=== PATIENT | male | born 1995 | race Caucasian/White ===

== ENCOUNTER 2021-09-19 08:00 | Emergency (ER) | payer OTHER, SELFPAY ==
[2021-09-19] MEDS ORDERED: CYCLOBENZAPRINE 10 MG TAB ONE (08:51)
[2021-09-19] MEDS ORDERED: IBUPROFEN 200 MG TAB PO ONE (08:51)
--- NOTE | 2021-09-19 09:05 | EDPHYS ---
Physician Documentation [facility] Name: Florin March Age: 26 yrs Sex: Male : 1995 Arrival Date: 09/19/2021 Time: 08:02 Bed Waiting Private MD: ED Physician Ferny Thompson HPI: 09/19 08:46 This 26 yrs old Male presents to ER via Ambulatory with complaints of Low Back Pain. ms3 08:46 The patient presents with pain that is acute, with no known mechanism of injury, and ms3 spasm. The symptoms are located in the low back. The pain does not radiate. The problem was sustained when lifting heavy object. Onset: The symptoms/episode began/occurred acutely, 2 week(s) ago. Modifying factors: The patient symptoms are alleviated by nothing, the patient symptoms are aggravated by bending. Associated signs and symptoms: The patient has no apparent associated signs or symptoms. Severity of symptoms: At their worst the symptoms were moderate, in the emergency department the symptoms are unchanged. Historical: - Allergies: 08:26 Zofran; ss 08:46 Morphine; ss - Home Meds: 08:46 None [Active]; ss - PMHx: 08:46 None; ss - PSHx: 08:46 None; ss - Immunization history:: Client reports having NOT received the Covid vaccine. - Social history:: Smoking status: Patient denies any tobacco usage or history of. ROS: 08:46 Constitutional: Negative for fever, and chills. ENT: Negative for injury, pain, and ms3 discharge, Neck: Negative for injury, pain, and swelling, Cardiovascular: Negative for chest pain, and palpitations. Respiratory: Negative for shortness of breath, cough, wheezing, and pleuritic chest pain, Abdomen/GI: Negative for abdominal pain, nausea, vomiting, diarrhea, and constipation, MS/Extremity: Negative for injury and deformity, Skin: Negative for injury, rash, and discoloration, Allergy/Immunology: Negative for hives, rash, and allergies. 08:46 Back: Positive for pain at rest, pain with movement. 08:46 All other systems are negative. Exam: 08:46 Constitutional: This is a well developed, well nourished patient who is awake, alert, ms3 and in no acute distress. Head/Face: Normocephalic, atraumatic. ENT: Nares patent. No nasal discharge, no septal abnormalities noted. Tympanic membranes are normal and external auditory canals are clear. Oropharynx with no redness, swelling, or masses, exudates, or evidence of obstruction, uvula midline. Mucous membranes moist. Neck: Trachea midline, no cervical lymphadenopathy. Supple, full range of motion without nuchal rigidity, or vertebral point tenderness. No Meningismus. Chest/axilla: Normal chest wall appearance and motion. Nontender with no deformity. Cardiovascular: Regular rate and rhythm with a normal S1 and S2. No gallops, murmurs, or rubs. Normal PMI, no JVD. No pulse deficits. Respiratory: Lungs have equal breath sounds bilaterally, clear to auscultation and percussion. No rales, rhonchi or wheezes noted. No increased work of breathing, no retractions or nasal flaring. Abdomen/GI: Soft, non-tender, with normal bowel sounds. No distension or tympany. No guarding or rebound. No evidence of tenderness throughout. Skin: Warm, dry with normal turgor. Normal color with no rashes, no lesions, and no evidence of cellulitis. Psych: Awake, alert, with orientation to person, place and time. Behavior, mood, and affect are within normal limits. 08:46 Back: pain, that is mild, ROM is normal, normal spinal alignment noted, CVA tenderness, is absent, muscle spasm, is appreciated in the right low back. 08:46 Musculoskeletal/extremity: Extremities: all appear grossly normal, with no appreciated pain with palpation, ROM: no acute changes, Circulation is intact in all extremities. Vital Signs: 08:25 BP 122 / 89; Pulse 71; Resp 16; Temp 98.4(TE); Pulse Ox 100% on R/A; Weight 58.97 kg; ss Height 5 ft. 6 in. (167.64 cm); Pain 5/10; 08:25 Body Mass Index 20.98 (58.97 kg, 167.64 cm) ss MDM: 08:05 Patient medically screened. ms3 08:46 Differential diagnosis: strain, Herniated disc Muscle spasm. ms3 09:05 Data reviewed: vital signs, nurses notes, and as a result, I will discharge patient. ms3 Counseling: I had a detailed discussion with the patient and/or guardian regarding: the historical points, exam findings, and any diagnostic results supporting the discharge/admit diagnosis, the need for outpatient follow up, to return to the emergency department if symptoms worsen or persist or if there are any questions or concerns that arise at home. ED course: Discussed PE findings with patient. Patient to follow up with PMD in 2-3 days. Patient understands/ agrees with plan. All questions answered. Return precautions discussed to include worsening symptoms, or any other concerns. On re-evaluation patient is A/O x4, nad, non-toxic, ambulatory in ED, speaking full sentences.. Administered Medications: 08:47 Drug: Ibuprofen 600 mg Route: PO; ss 09:26 Follow up: Response: No adverse reaction; Medication administered at discharge. ss 08:47 Drug: Flexeril (cyclobenzaprine) 10 mg Route: PO; ss 09:26 Follow up: Response: No adverse reaction ss Disposition Summary: 09/19/21 09:05 Discharge Ordered Location: Home ms3 Condition: Stable ms3 Diagnosis - Low back pain ms3 - Muscle spasm of back ms3 Followup: ms3 - With: Jaswant Sosa DO - When: 2 - 3 days - Reason: Re-evaluation by your physician Discharge Instructions: - Discharge Summary Sheet ms3 - Acute Back Pain, Adult ms3 Forms: - Medication Reconciliation Form ms3 - Thank You Letter ms3 - Antibiotic Education ms3 - Prescription Opioid Use ms3 Prescriptions: - Ibuprofen 600 mg Oral Tablet - take 1 tablet by ORAL route every 6 hours As needed take with food; 30 tablet; ms3 Refills: 0, Product Selection Permitted - Cyclobenzaprine 5 mg Oral Tablet - take 1 tablet by ORAL route 3 times per day As needed; 15 tablet; Refills: 0, ms3 Product Selection Permitted Signatures: Shayla Freed, RN RN Ferny Almeida DO DO ms3
--- NOTE | 2021-09-19 09:05 | ER ---
Nurse's Notes [facility] Name: Florin March Age: 26 yrs Sex: Male : 1995 Arrival Date: 09/19/2021 Time: 08:02 Bed Waiting [facility] MD: Diagnosis: Low back pain;Muscle spasm of back Presentation: 09/19 08:25 Chief complaint: Patient states: low back pain that began 2 weeks ago. Worse when ss bending down or lifting heavy objects. Coronavirus screen: Client denies travel out of the [place] in the last 14 days. Ebola Screen: Patient denies exposure to infectious person. Patient denies travel to an Ebola-affected area in the 21 days before illness onset. Initial Sepsis Screen: Does the patient meet any 2 criteria? No. Patient's initial sepsis screen is negative. Does the patient have a suspected source of infection? No. Patient's initial sepsis screen is negative. Risk Assessment: Do you want to hurt yourself or someone else? Patient reports no desire to harm self or others. Onset of symptoms was August 2021. 08:25 Method Of Arrival: Ambulatory ss 08:25 Acuity: DANIELLE 4 ss Historical: - Allergies: 08:26 Zofran; ss 08:46 Morphine; ss - Home Meds: 08:46 None [Active]; ss - PMHx: 08:46 None; ss - PSHx: 08:46 None; ss - Immunization history:: Client reports having NOT received the Covid vaccine. - Social history:: Smoking status: Patient denies any tobacco usage or history of. Screenin:25 Abuse screen: Denies threats or abuse. Denies injuries from another. Nutritional ss screening: No deficits noted. Tuberculosis screening: Never had TB. Fall Risk None identified. Assessment: 09:25 General: Appears in no apparent distress. comfortable, Behavior is calm, cooperative, ss Denies fever, feeling ill, fatigue, chills. Pain: Complains of pain in right low back Pain currently is 5 out of 10 on a pain scale. Pain began 2 weeks ago Is continuous. Pain: Aggravated by increased activity, repositioning. Neuro: Metcalf Agitation-Sedation Scale (RASS): 0 - Alert and Calm Level of Consciousness is awake, alert, obeys commands, Oriented to person, place, time, situation. Cardiovascular: Capillary refill < 3 seconds is brisk in bilateral fingers. Respiratory: Airway is patent Respiratory effort is even, unlabored, Respiratory pattern is regular, symmetrical. GI: No signs and/or symptoms were reported involving the gastrointestinal system. EENT: Nares are clear. Derm: Skin is intact, is healthy with good turgor, Skin is dry, Skin is pink, warm \T\ dry. normal. Musculoskeletal: Range of motion: intact in all extremities, Swelling absent. Vital Signs: 08:25 BP 122 / 89; Pulse 71; Resp 16; Temp 98.4(TE); Pulse Ox 100% on R/A; Weight 58.97 kg; ss Height 5 ft. 6 in. (167.64 cm); Pain 5/10; 08:25 Body Mass Index 20.98 (58.97 kg, 167.64 cm) ss ED Course: 08:02 Patient arrived in ED. as 08:06 Ferny Thompson DO is Attending Physician. ms3 08:26 Triage completed. ss 08:26 Arm band placed on right wrist. ss 09:04 Jaswant Sosa DO is Referral Physician. ms3 09:25 Shayla Freed, BARB is Primary Nurse. ss 09:25 Patient has correct armband on for positive identification. Bed in low position. ss 09:25 No provider procedures requiring assistance completed. Patient did not have IV access ss during this emergency room visit. Administered Medications: 08:47 Drug: Ibuprofen 600 mg Route: PO; ss 09:26 Follow up: Response: No adverse reaction; Medication administered at discharge. ss 08:47 Drug: Flexeril (cyclobenzaprine) 10 mg Route: PO; ss 09:26 Follow up: Response: No adverse reaction ss Medication: 09:25 VIS not applicable for this client. ss Outcome: 09:05 Discharge ordered by . ms3 09:25 Discharged to home ambulatory, with significant other. ss 09:25 Condition: good 09:25 Discharge instructions given to patient, significant other, Instructed on discharge instructions, follow up and referral plans. medication usage, Demonstrated understanding of instructions, follow-up care, medications, Prescriptions given X 2. 09:26 Patient left the ED. Signatures: Michela Boyer Shelby, BARB RN Ferny Thompson DO DO ms3
[2021-09-19 09:32] VITALS: BP 122/89; TEMP 98.4; O2SAT 100
== END 2021-09-19 09:26 | disposition home or self-care (01) ==
LOC: ER 08:00
DX: M62.830 Muscle spasm of back (principal); Z88.5 Allergy status to narcotic agent; Z88.8 Allergy status to other drugs, medicaments and biological substances

== ENCOUNTER 2021-10-28 19:00 | Emergency (ER) | payer OTHER ==
--- NOTE | 2021-10-28 20:25 | ER ---
Nurse's Notes [facility] Name: Florin March Age: 26 yrs Sex: Male : 1995 Arrival Date: 10/28/2021 Time: 19:06 Bed Waiting Private MD: Diagnosis: Other otitis externa, left ear Presentation: 10/28 20:15 Chief complaint: Patient states: " was trying to clean my left ear last night with vc1 Hydrogen peroxide and now it is clogged and hurting.". Coronavirus screen: Vaccine status: Patient reports being unvaccinated. At this time, the client does not indicate any symptoms associated with coronavirus-19. Ebola Screen: No symptoms or risks identified at this time. Risk Assessment: Do you want to hurt yourself or someone else? Patient reports no desire to harm self or others. Onset of symptoms was October 28, 2021. 20:15 Method Of Arrival: Ambulatory vc1 20:15 Acuity: DANIELLE 5 vc1 20:42 Initial Sepsis Screen: Does the patient meet any 2 criteria? No. Patient's initial vc1 sepsis screen is negative. Does the patient have a suspected source of infection? No. Patient's initial sepsis screen is negative. Triage Assessment: 20:21 General: Appears in no apparent distress. uncomfortable, Behavior is calm, cooperative, vc1 appropriate for age. Pain: Complains of pain in left ear. EENT: Reports pain in left ear Pain is 9 out of 10 on a pain scale. Historical: - Allergies: 20:18 Morphine; vc1 - Home Meds: 20:18 levothyroxine oral [Active]; vc1 - PMHx: 20:18 None; vc1 - Immunization history:: Adult Immunizations. - Social history:: Smoking status: Patient denies any tobacco usage or history of. Screenin:21 Abuse screen: Denies threats or abuse. Nutritional screening: No deficits noted. vc1 Tuberculosis screening: No symptoms or risk factors identified. Fall Risk None identified. Vital Signs: 20:15 Weight 58.97 kg; Height 5 ft. 6 in. (167.64 cm); Pain 9/10; vc1 20:22 Pulse 70; Resp 16; Temp 97.8; Pulse Ox 100% ; vc1 20:24 BP 127 / 95; vc1 20:15 Body Mass Index 20.98 (58.97 kg, 167.64 cm) vc1 ED Course: 19:06 Patient arrived in ED. mr 19:11 Grey Patterson PA is PHCP. cp 19:11 Hira Segundo MD is Attending Physician. cp 20:17 Triage completed. vc1 20:21 Arm band placed on left wrist. vc1 20:21 Patient has correct armband on for positive identification. vc1 20:21 No provider procedures requiring assistance completed. Patient did not have IV access vc1 during this emergency room visit. 20:24 Edilia Adams MD is Referral Physician. cp Administered Medications: No medications were administered Medication: 20:21 VIS not applicable for this client. vc1 Outcome: 20:24 Discharge ordered by . cp 20:42 Discharged to home ambulatory. vc1 20:42 Condition: good 20:42 Discharge instructions given to patient, Instructed on discharge instructions, follow up and referral plans. medication usage, Demonstrated understanding of instructions, follow-up care, medications, Prescriptions given X 1. 20:42 Patient left the ED. vc1 Signatures: Cindy Diaz mr Grey Patterson PA PA cp Daina Olivo, RN RN vc1
--- NOTE | 2021-10-28 20:26 | EDPHYS ---
Physician Documentation [facility] Name: Florin March Age: 26 yrs Sex: Male : 1995 Arrival Date: 10/28/2021 Time: 19:06 Bed Waiting Private MD: ED Physician Hira Segundo HPI: 10/28 20:20 This 26 yrs old Male presents to ER via Ambulatory with complaints of Ear Pain. cp 20:20 The patient presents with a fullness, pain, that is acute. The complaints affect the cp left ear. Onset: The symptoms/episode began/occurred yesterday, and became worse today. Associated signs and symptoms: The patient has no apparent associated signs or symptoms. Severity of symptoms: in the emergency department the symptoms are unchanged despite home interventions. Historical: - Allergies: 20:18 Morphine; vc1 - Home Meds: 20:18 levothyroxine oral [Active]; vc1 - PMHx: 20:18 None; vc1 - Immunization history:: Adult Immunizations. - Social history:: Smoking status: Patient denies any tobacco usage or history of. ROS: 20:21 Eyes: Negative for injury, pain, redness, and discharge. cp 20:21 Constitutional: Negative for body aches, chills, fever, poor PO intake. 20:21 ENT: Positive for ear pain, Negative for drainage from ear(s), sore throat, difficulty swallowing, difficulty handling secretions. 20:21 Cardiovascular: Negative for chest pain, palpitations. 20:21 Respiratory: Negative for cough, shortness of breath, wheezing. 20:21 Skin: Negative for rash. 20:21 All other systems are negative. Exam: 20:22 Head/Face: Normocephalic, atraumatic. cp 20:22 Constitutional: The patient appears in no acute distress, alert, awake, non-toxic, well developed, well nourished. 20:22 Eyes: Periorbital structures: appear normal, Conjunctiva: normal, no exudate, no injection, Lids and lashes: appear normal, bilaterally. 20:22 ENT: External ear(s): are unremarkable, Ear canal(s): cerumen impaction, that is mild, occluding the left ear canal, erythema, of the left canal, mild, swelling, of the left canal, mild, TM's: not visable, because of cerumen, Examination of the other ear shows no obvious abnormality, Mouth: Lips: moist, Oral mucosa: moist, Posterior pharynx: Airway: no evidence of obstruction, patent. 20:22 Neck: Lymph nodes: no appreciated lymphadenopathy. Vital Signs: 20:15 Weight 58.97 kg; Height 5 ft. 6 in. (167.64 cm); Pain 9/10; vc1 20:22 Pulse 70; Resp 16; Temp 97.8; Pulse Ox 100% ; vc1 20:24 BP 127 / 95; vc1 20:15 Body Mass Index 20.98 (58.97 kg, 167.64 cm) vc1 MDM: 20:24 Patient medically screened. cp 20:24 Data reviewed: vital signs, nurses notes. cp 20:24 Differential diagnosis: otitis media, otitis externa, ruptured TM, foreign body, cp cerumen impaction. Counseling: I had a detailed discussion with the patient and/or guardian regarding: the historical points, exam findings, and any diagnostic results supporting the discharge/admit diagnosis, to return to the emergency department if symptoms worsen or persist or if there are any questions or concerns that arise at home. Administered Medications: No medications were administered Disposition: 10/29 04:55 Co-signature as Attending Physician, Hira Segundo MD. [email or web address] Disposition Summary: 10/28/21 20:24 Discharge Ordered Location: Home cp Problem: new cp Symptoms: are unchanged cp Condition: Stable cp Diagnosis - Other otitis externa, left ear cp Followup: cp - With: Edilia Adams MD - When: 2 - 3 days - Reason: Worsening of condition Discharge Instructions: - Discharge Summary Sheet cp - Ear Drops, Adult cp - Otitis Externa cp Forms: - Medication Reconciliation Form cp - Thank You Letter cp - Antibiotic Education cp - Prescription Opioid Use cp Prescriptions: - Cortisporin-TC 3.3-3-10-0.5 mg/mL Otic Suspension - instill 4 drops by OTIC route every 6 hours; 1 bottle; Refills: 0, Product cp Selection Permitted Signatures: Grey Patterson PA PA cp Holmes, Maurice, MD MD 7 Daina Olivo RN RN vc1
[2021-10-28 21:16] VITALS: TEMP 97.8; O2SAT 100
[2021-10-28 21:18] VITALS: BP 127/95
== END 2021-10-28 20:42 | disposition home or self-care (01) ==
LOC: ER 19:00
DX: H60.8X2 Other otitis externa, left ear (principal); Z88.5 Allergy status to narcotic agent
CPT/HCPCS: 99282

== ENCOUNTER 2021-11-05 08:06 | Emergency (ER) | payer OTHER ==
--- NOTE | 2021-11-05 09:46 | EDPHYS ---
Physician Documentation [facility] Name: Florin March Age: 26 yrs Sex: Male : 1995 Arrival Date: 11/05/2021 Time: 08:09 Bed 11 Private MD: ED Physician Álvaro Adams HPI: 11/05 08:17 This 26 yrs old Male presents to ER via Ambulatory with complaints of Headache, Cough, jmm Congestion, Body Aches. 08:17 The patient complains of pain to the forehead. Onset: The symptoms/episode jmm began/occurred gradually, 1 day(s) ago. Associated signs and symptoms: Pertinent positives:. This is a 26 year old male with a history of hypothyroidism that presents to the ED with complaints of headache, sinus congestion beginning yesterday. Denies vomiting, denies diarrhea, denies abdominal pain. Also complains of cough. Denies sob. . Historical: - Allergies: 08:20 Morphine; ss - Home Meds: 08:20 levothyroxine 150 mcg oral tab 1 tab once daily for hypothyroidism [Active]; ss - PMHx: 08:20 Hypothyroidism; ss - PSHx: 08:20 L femur; ss - Immunization history:: Client reports receiving the 2nd dose of the Covid vaccine. - Social history:: Smoking status: Patient denies any tobacco usage or history of. ROS: 08:17 Constitutional: Positive for body aches. jmm 08:17 Eyes: Positive for 08:17 ENT: Positive for sinus congestion. 08:17 Respiratory: Positive for cough. 08:17 Neuro: Positive for headache, Negative for 08:17 All other systems are negative. Exam: 08:17 Constitutional: This is a well developed, well nourished patient who is awake, alert, jmm and in no acute distress. Head/Face: atraumatic. Eyes: EOMI, no conjunctival erythema appreciated 08:17 Neck: Trachea midline, Supple Chest/axilla: Normal chest wall appearance and motion. Cardiovascular: Regular rate and rhythm. No edema appreciated 08:17 Back: Normal ROM Skin: General appearance color normal MS/ Extremity: Moves all extremities, no obvious deformities appreciated, no edema noted to the lower extremities Neuro: Awake and alert Psych: Behavior is normal, Mood is normal, Patient is cooperative and pleasant 08:17 ENT: TM's: erythema, that is moderate, on the right, on the left, Posterior pharynx: erythema, that is mild. 08:17 Respiratory: the patient does not display signs of respiratory distress, Respirations: normal, Breath sounds: are clear throughout. Vital Signs: 08:18 Pulse 85; Resp 16; Temp 97.5(TE); Pulse Ox 100% on R/A; Weight 58.97 kg; Height 5 ft. 6 ss in. (167.64 cm); Pain 8/10; 08:28 BP 124 / 73; ss 08:18 Body Mass Index 20.98 (58.97 kg, 167.64 cm) ss MDM: 08:45 Patient medically screened. [facility] 09:45 Data reviewed: vital signs, nurses notes. Counseling: I had a detailed discussion with martha the patient and/or guardian regarding: the historical points, exam findings, and any diagnostic results supporting the discharge/admit diagnosis, lab results, the need for outpatient follow up, to return to the emergency department if symptoms worsen or persist or if there are any questions or concerns that arise at home. ED course: Patient is alert and non toxic in appearance in the ED. No signs of resp dsitress. Patient advised to follow up with pcp and otherwise given strict return precautions. patient understood and agrees with the plan of care. . 11/05 08:16 Order name: Flu; Complete Time: 09:08 mb7 11/05 08:16 Order name: COVID-19 SARS RT PCR (Document "Date of Onset" if Symptomatic); Complete mb7 Time: 09:48 11/05 08:17 Order name: Strep; Complete Time: 08:46 mb7 11/05 08:39 Order name: Throat Culture EDMS Administered Medications: 09:47 Drug: Ibuprofen 600 mg Route: PO; ss 09:55 Follow up: Response: No adverse reaction; Medication administered at discharge. ss Disposition: 10:11 Co-signature as Attending Physician, Álvaro Adams MD I agree with the assessment and kdr plan of care. Disposition Summary: 11/05/21 09:46 Discharge Ordered Location: Home jm Condition: Stable jm Diagnosis - Coronavirus infection, unspecified jm Followup: jm - With: Private Physician - When: 2 - 3 days - Reason: Recheck today's complaints, Continuance of care, Re-evaluation by your physician Discharge Instructions: - Discharge Summary Sheet jmm - COVID-19 jayden Forms: - Medication Reconciliation Form martha - Thank You Letter martha - Antibiotic Education jaydenm - Work release form martha - Prescription Opioid Use martha Signatures: Dispatcher [employer] Álvaro Go MD MD kdr Mickail, Joel, PA PA jmm Smirch, Shelby, RN RN ss Corrections: (The following items were deleted from the chart) 08: 08:20 Allergies: Zofran; ss ss 08:21 08:20 PSHx: None; ss ss
--- NOTE | 2021-11-05 09:46 | ER ---
Nurse's Notes [facility] Sav Name: Florin March Age: 26 yrs Sex: Male : 1995 Arrival Date: 11/05/2021 Time: 08:09 Bed 11 Private MD: Diagnosis: Coronavirus infection, unspecified Presentation: 11/05 08:18 Chief complaint: Patient states: cough, ZARAGOZA, body aches and congestion that began after ss lunch yesterday. Coronavirus screen: Client denies travel out of the [place] in the last 14 days. Ebola Screen: Patient denies exposure to infectious person. Patient denies travel to an Ebola-affected area in the 21 days before illness onset. Initial Sepsis Screen: Does the patient meet any 2 criteria? No. Patient's initial sepsis screen is negative. Does the patient have a suspected source of infection? No. Patient's initial sepsis screen is negative. Risk Assessment: Do you want to hurt yourself or someone else? Patient reports no desire to harm self or others. Onset of symptoms was November 04, 2021. 08:18 Method Of Arrival: Ambulatory ss 08:18 Acuity: DANIELLE 4 ss Historical: - Allergies: 08:20 Morphine; ss - Home Meds: 08:20 levothyroxine 150 mcg oral tab 1 tab once daily for hypothyroidism [Active]; ss - PMHx: 08:20 Hypothyroidism; ss - PSHx: 08:20 L femur; ss - Immunization history:: Client reports receiving the 2nd dose of the Covid vaccine. - Social history:: Smoking status: Patient denies any tobacco usage or history of. Screenin:30 Abuse screen: Denies threats or abuse. Denies injuries from another. Nutritional ss screening: No deficits noted. Tuberculosis screening: Never had TB. Fall Risk None identified. Assessment: 08:30 General: Appears in no apparent distress. comfortable, Behavior is calm, cooperative, ss Reports feeling ill for 12-24 hours. Pain: Complains of pain in generalized body aches Pain currently is 8 out of 10 on a pain scale. Quality of pain is described as tender, Is continuous. Neuro: Level of Consciousness is awake, alert, obeys commands, Oriented to person, place, time, situation. Respiratory: Airway is patent Respiratory effort is even, unlabored, Respiratory pattern is regular, symmetrical. GI: Patient currently denies diarrhea, nausea, vomiting. Derm: Skin is intact, is healthy with good turgor, Skin is dry, Skin is pink, warm \\T\\ dry. normal. Musculoskeletal: Circulation, motion, and sensation intact. Range of motion: intact in all extremities, Swelling absent. 09:51 Reassessment: Patient appears in no apparent distress at this time. Patient and/or ss family updated on plan of care and expected duration. Pain level reassessed. Patient is alert, oriented x 3, equal unlabored respirations, skin warm/dry/pink. Vital Signs: 08:18 Pulse 85; Resp 16; Temp 97.5(TE); Pulse Ox 100% on R/A; Weight 58.97 kg; Height 5 ft. 6 ss in. (167.64 cm); Pain 8/10; 08:28 BP 124 / 73; ss 08:18 Body Mass Index 20.98 (58.97 kg, 167.64 cm) ED Course: 08:09 Patient arrived in ED. mr 08:20 Triage completed. 08:20 Arm band placed on right wrist. 08:25 Gregory Chase PA is PHCP. [facility] 08:25 Álvaro Adams MD is Attending Physician. [facility] 08:30 Patient has correct armband on for positive identification. Bed in low position. Call ss light in reach. 08:30 No provider procedures requiring assistance completed. ss 08:33 Strep Sent. mb7 08:33 COVID-19 SARS RT PCR (Document "Date of Onset" if Symptomatic) Sent. mb7 08:33 Flu Sent. mb7 09:51 Shayla Freed, BARB is Primary Nurse. 09:54 Patient did not have IV access during this emergency room visit. Administered Medications: 09:47 Drug: Ibuprofen 600 mg Route: PO; 09:55 Follow up: Response: No adverse reaction; Medication administered at discharge. Medication: 08:30 VIS not applicable for this client. Outcome: 09:46 Discharge ordered by . [facility] 09:54 Discharged to home ambulatory. 09:54 Condition: good 09:54 Discharge instructions given to patient, Instructed on discharge instructions, follow up and referral plans. Demonstrated understanding of instructions, follow-up care. 09:55 Patient left the ED. Signatures: MickailGregory PA PA jmm Rivera, Mary mr Shayla Freed, BARB RN Cindy Huang mb7 Corrections: (The following items were deleted from the chart) 08: Allergies: Zofran; ss ss 08: PSHx: None; [facility]
[2021-11-05] MEDS ORDERED: IBUPROFEN 200 MG TAB PO ONE (09:53)
[2021-11-05 10:01] VITALS: TEMP 97.5; O2SAT 100
[2021-11-05 10:02] VITALS: BP 124/73
== END 2021-11-05 09:55 | disposition home or self-care (01) ==
LOC: ER 08:06
DX: U07.1 COVID-19 (principal); E03.9 Hypothyroidism, unspecified; Z88.5 Allergy status to narcotic agent
CPT/HCPCS: 87070; 87081; 87804 ×2; U0003

== ENCOUNTER 2022-01-31 11:22 | Emergency (ER) | payer SELFPAY ==
[2022-01-31 13:19] LABS: SARS-COV-2 RT PCR NEGATIVE (NEGATIVE)
--- NOTE | 2022-01-31 13:35 | ER ---
Nurse's Notes [facility] Name: Florin March Age: 27 yrs Sex: Male : 1995 Arrival Date: 01/31/2022 Time: 11:25 Bed DIS3 Private MD: Diagnosis: Influenza Presentation: 01/31 12:08 Chief complaint: Patient states: cough/congestion and sore throat x 4 days. Coronavirus vg1 screen: Vaccine status: Patient reports being unvaccinated. Client denies travel out of the [place] in the last 14 days. Ebola Screen: Patient negative for fever greater than or equal to 101.5 degrees Fahrenheit, and additional compatible Ebola Virus Disease symptoms. Initial Sepsis Screen: Does the patient meet any 2 criteria? No. Patient's initial sepsis screen is negative. Does the patient have a suspected source of infection? No. Patient's initial sepsis screen is negative. Risk Assessment: Do you want to hurt yourself or someone else? Patient reports no desire to harm self or others. Onset of symptoms was January 28, 2022. 12:08 Method Of Arrival: Ambulatory vg1 12:08 Acuity: DANIELLE 4 vg1 Triage Assessment: 12:11 General: Appears uncomfortable, Behavior is calm, cooperative. Pain: Complains of pain vg1 in throat Pain Pain began 2-3 days ago. EENT: Throat is reddened. Respiratory: Reports cough that is Airway is patent Respiratory effort is even, unlabored. Historical: - Allergies: 12:11 Morphine; vg1 - Home Meds: 12:11 levothyroxine 150 mcg tab 1 tab once daily for Hypothyroidism [Active]; vg1 - PMHx: 12:11 Hypothyroidism; vg1 - PSHx: 12:11 L femur; vg1 - Immunization history:: Client reports having NOT received the Covid vaccine. - Social history:: Smoking status: Patient denies any tobacco usage or history of. Screenin:06 Abuse screen: Denies threats or abuse. Denies injuries from another. Nutritional ss screening: No deficits noted. Tuberculosis screening: Never had TB. Fall Risk None identified. Assessment: 14:06 General: Appears in no apparent distress. comfortable, Behavior is calm, cooperative. ss Neuro: Level of Consciousness is awake, alert, obeys commands, Oriented to person, place, time, situation. Respiratory: Airway is patent Respiratory effort is even, unlabored, Respiratory pattern is regular, symmetrical. Derm: Skin is pink, warm \T\ dry. normal. Vital Signs: 12:08 BP 122 / 87; Pulse 83; Resp 16; Temp 98.3(O); Pulse Ox 99% ; Weight 58.97 kg; Height 5 vg1 ft. 6 in. (167.64 cm); Pain 7/10; 12:08 Body Mass Index 20.98 (58.97 kg, 167.64 cm) vg1 ED Course: 11:25 Patient arrived in ED. mr 12:11 Triage completed. vg1 12:11 Arm band placed on. vg1 12:13 Gregory Chase PA is PHCP. [facility] 12:13 Grey Oliveira MD is Attending Physician. [facility] 14:06 Patient has correct armband on for positive identification. Bed in low position. Call ss light in reach. 14:06 No provider procedures requiring assistance completed. Patient did not have IV access ss during this emergency room visit. Administered Medications: No medications were administered Medication: 14:06 VIS not applicable for this client. ss Outcome: 13:34 Discharge ordered by . [facility] 14:06 Discharged to home ambulatory. 14:06 Condition: good 14:06 Discharge instructions given to patient, family, Instructed on discharge instructions, follow up and referral plans. medication usage, Demonstrated understanding of instructions, follow-up care, medications, Prescriptions given X 1. 14:06 Patient left the ED. ss Signatures: Gregory Chase PA PA jmm Rivertaylor Cindy mr Shayla Freed, RN RN Usha Kamara RN RN vg1
--- NOTE | 2022-01-31 13:35 | EDPHYS ---
Physician Documentation [facility] Name: Florin March Age: 27 yrs Sex: Male : 1995 Arrival Date: 01/31/2022 Time: 11:25 Bed DIS3 Private MD: [facility] Physician Grey Oliveira HPI: 01/31 13:30 This 27 yrs old Male presents to ER via Ambulatory with complaints of Sore Throat. jmm 13:30 The patient presents with sore throat. Onset: The symptoms/episode began/occurred jmm gradually. Modifying factors: The symptoms are alleviated by nothing, the symptoms are aggravated by nothing. 13:31 It is unknown whether or not the patient has had similar symptoms in the past. jmm Historical: - Allergies: 12:11 Morphine; vg1 - Home Meds: 12:11 levothyroxine 150 mcg tab 1 tab once daily for Hypothyroidism [Active]; vg1 - PMHx: 12:11 Hypothyroidism; vg1 - PSHx: 12:11 L femur; vg1 - Immunization history:: Client reports having NOT received the Covid vaccine. - Social history:: Smoking status: Patient denies any tobacco usage or history of. ROS: 13:31 Constitutional: Positive for body aches, chills. jmm 13:31 ENT: Positive for sinus congestion, sore throat. 13:31 All other systems are negative. Exam: 13:31 Constitutional: This is a well developed, well nourished patient who is awake, alert, jmm and in no acute distress. Head/Face: atraumatic. Eyes: EOMI, no conjunctival erythema appreciated 13:31 Chest/axilla: Normal chest wall appearance and motion. Cardiovascular: Regular rate and rhythm. No edema appreciated Respiratory: Normal respirations, no respiratory distress appreciated Abdomen/GI: Non distended Back: Normal ROM Skin: General appearance color normal MS/ Extremity: Moves all extremities, no obvious deformities appreciated, no edema noted to the lower extremities Neuro: Awake and alert Psych: Behavior is normal, Mood is normal, Patient is cooperative and pleasant 13:31 ENT: Posterior pharynx: erythema, that is mild. Vital Signs: 12:08 BP 122 / 87; Pulse 83; Resp 16; Temp 98.3(O); Pulse Ox 99% ; Weight 58.97 kg; Height 5 vg1 ft. 6 in. (167.64 cm); Pain 7/10; 12:08 Body Mass Index 20.98 (58.97 kg, 167.64 cm) vg1 MDM: 12:17 Patient medically screened. [facility] 13:32 Data reviewed: vital signs, nurses notes. Counseling: I had a detailed discussion with martha the patient and/or guardian regarding: the historical points, exam findings, and any diagnostic results supporting the discharge/admit diagnosis, the need for outpatient follow up, to return to the emergency department if symptoms worsen or persist or if there are any questions or concerns that arise at home. ED course: Patient is alert and non toxic in appearance in the ED. No signs of resp distress. patient advised to folow up with pcp and otherwise given strict return precautions. patient understood and agrees with the plan of care. . 01/31 12:13 Order name: COVID-19/FLU A+B; Complete Time: 13:53 [facility] 01/31 12:13 Order name: Strep; Complete Time: 12:55 [facility] 01/31 12:46 Order name: Throat Culture EDMS Administered Medications: No medications were administered Disposition Summary: 01/31/22 13:34 Discharge Ordered Location: Home [facility] Condition: Stable [facility] Diagnosis - Influenza [facility] Followup: [facility] - With: Private Physician - When: 2 - 3 days - Reason: Recheck today's complaints, Continuance of care, Re-evaluation by your physician Discharge Instructions: - Discharge Summary Sheet [facility] - Influenza, Adult jm Forms: - Medication Reconciliation Form [facility] - Thank You Letter [facility] - Antibiotic Education [facility] - Prescription Opioid Use [facility] Prescriptions: - Tamiflu 75 mg Oral Capsule - take 1 tablet by ORAL route every 12 hours for 5 days; 10 tablet; Refills: 0, [facility] Product Selection Permitted Addendum: 02/02/2022 13:32 Co-signature as Attending Physician, Grey Oliveira MD I agree with the assessment and c allison plan of care. Signatures: Dispatcher [employer] Grey Anderson MD MD cha Mickail, Joel, PA PA jmm Garcia, Victoria, RN RN vg1
[2022-01-31 14:16] VITALS: BP 122/87; TEMP 98.3; O2SAT 99
== END 2022-01-31 14:06 | disposition home or self-care (01) ==
LOC: ER 11:22
DX: J11.1 Influenza due to unidentified influenza virus with other respiratory manifestations (principal); Z20.822 Contact with and (suspected) exposure to COVID-19
CPT/HCPCS: 0240U; 87070; 87081; 99282